=== PATIENT | female | born 2000 | race Caucasian/White ===

== ENCOUNTER 2020-09-21 20:20 | Observation (INO) | payer OTHER ==
[~2020-09-21] VITALS: Ht 167.6 cm; Wt 99.8 kg
[2020-09-21 21:20] VITALS: BP 116/59
[2020-09-21] MEDS ORDERED: TERBUTALINE 1 MG/ML VIAL SUBQ SCH (21:40)
[2020-09-21] MEDS ORDERED: TERBUTALINE 1 MG/ML VIAL SUBQ ONE (21:54)
[2020-09-22] MEDS: TERBUTALINE 2.5 MG TAB PO SCH ×2 (00:04→05:54)
--- NOTE | 2020-09-22 06:57 | NUR ---
PATIENT HAS BEEN SCREENED AND CATEGORIZED LOW NUTRITION RISK. PATIENT WILL BE SEEN WITHIN 7 DAYS OF ADMISSION. 09/28/20 TAE MCNULTY MS, RDN
[2020-09-22] MEDS ORDERED: CAMERA MC ONE (07:09)
== END 2020-09-22 13:10 | disposition home or self-care (01) ==
LOC: MLD 20:20 → MFCC 22:39
PROVIDERS: ADMIT Obstetrics & Gynecology; ATTEND Obstetrics & Gynecology
DX: O42.913 Preterm premature rupture of membranes, unspecified as to length of time between rupture and onset of labor, third trimester (principal); O62.9 Abnormality of forces of labor, unspecified; Z3A.35 35 weeks gestation of pregnancy
CPT/HCPCS: 76805; 96372; G0378; J3105; 59025

== ENCOUNTER 2020-10-23 10:10 | Observation (INO) | payer OTHER, SELFPAY ==
[~2020-10-23] VITALS: Ht 165.1 cm; Wt 105.2 kg
[2020-10-23] MEDS ORDERED: PNV91TAB10 PO (13:03)
== END 2020-10-23 13:50 | disposition home or self-care (01) ==
LOC: MLD 10:10
PROVIDERS: ADMIT Obstetrics & Gynecology; ATTEND Obstetrics & Gynecology
DX: O62.9 Abnormality of forces of labor, unspecified (principal); Z20.822 Contact with and (suspected) exposure to COVID-19; Z3A.39 39 weeks gestation of pregnancy
CPT/HCPCS: 59025; 76805; 81000; 87426; G0378

== ENCOUNTER 2020-10-26 15:16 | Inpatient (IN) | payer OTHER ==
[~2020-10-26] VITALS: Ht 165.1 cm; Wt 104.3 kg
[~2020-10-26 15:16] MED LIST: PNV91TAB10 PO
[2020-10-26] MEDS ORDERED: PROMETHAZINE 25 MG/ML VIAL IVP PRN (16:50)
[2020-10-26] MEDS ORDERED: CARBOPROST 250 MCG/ML AMP IM PRN (16:50)
[2020-10-26] MEDS ORDERED: LACTATED RINGERS 500 ML IV SCH (16:50)
[2020-10-26] MEDS ORDERED: NALBUPHINE 10 MG/ML AMP IVP PRN (16:50)
[2020-10-26] MEDS ORDERED: METHYLERGONOVINE 0.2 MG/ML AMP IM PRN (16:50)
[2020-10-26] MEDS ORDERED: OXYTOCIN 10 UNITS/ML VIAL IM SCH (16:50)
[2020-10-26] MEDS ORDERED: OXYTOCIN 20 UNITS in LACTATED RINGERS 1,000 ML IV SCH (17:10)
[2020-10-26 17:26] LABS: BASOPHILS % (AUTO) 0.3 % (0.0-2.0); EOSINOPHILS # (AUTO) 0.1 K/uL (0-0.4); EOSINOPHILS % (AUTO) 0.8 % (0.0-4.0); HEMATOCRIT 35.3 % (36-48); HEMOGLOBIN 11.8 g/dL (12.0-16.0); LYMPHOCYTES # (AUTO) 1.7 K/uL (2.5-16.5); LYMPHOCYTES % (AUTO) 17.7 % (20.5-51.1); MEAN CORPUSCULAR HEMOGLOBIN 29 pg (27-31); MEAN CORPUSCULAR HGB CONC 33 g/dL (33-37); MEAN CORPUSCULAR VOLUME 86.2 fL (80-94); MONOCYTES # (AUTO) 0.4 K/uL (0.8-1.0); MONOCYTES % (AUTO) 4.5 % (1.7-9.3); NEUTROPHILS # (AUTO) 7.4 K/uL (1.8-7.7); NEUTROPHILS % (AUTO) 76.7 % (42.2-75.2); PLATELET COUNT (AUTO) 222 K/uL (140-450); RED CELL DISTRIBUTION WIDTH 14.6 % (11.6-13.7); WHITE BLOOD COUNT (AUTO) 9.6 K/uL (4.8-10.8)
[2020-10-26 17:27] LABS: APPEARANCE,URINE HAZY (CLEAR); BILIRUBIN,URINE NEGATIVE (NEGATIVE); BLOOD, URINE NEGATIVE (NEGATIVE); COLOR,URINE YELLOW (YELLOW); LEUKOCYTE ESTERASE ,URINE TRACE (NEGATIVE); NITRITE, URINE NEGATIVE (NEGATIVE); PH,URINE 6.5 (5.0-9.0); UGLUCOSE NEGATIVE (NEGATIVE)
[2020-10-26] MEDS ORDERED: MISOPROSTOL 25 MCG TAB VG SCH (17:30)
[2020-10-26 17:35] LABS: RBC,URINE 0-5 /HPF (0-5)
[2020-10-26 17:40] LABS: ALBUMIN 2.7 g/dL (3.4-5.0); ANION GAP 12.9 (8-16); CARBON DIOXIDE 21.5 mmol/L (21-32); CREATININE 0.5 mg/dL (0.6-1.3); POTASSIUM 3.4 mmol/L (3.5-5.1); TOTAL BILIRUBIN 0.4 mg/dL (0.0-1.0)
[2020-10-26 17:43] VITALS: BP 101/49
[2020-10-26 19:44] VITALS: BP 105/52
[2020-10-27] MEDS ORDERED: OXYTOCIN 20 UNITS/LR PREMIX 1,000 ML IV ONE (03:34)
--- NOTE | 2020-10-27 07:43 | NUR ---
PATIENT HAS BEEN SCREENED AND CATEGORIZED LOW NUTRITION RISK. PATIENT WILL BE SEEN WITHIN 7 DAYS OF ADMISSION. 11/01/[address]
[2020-10-27] MEDS: LACTATED RINGERS 1,000 ML IV SCH ×2 (10:50→15:52)
[2020-10-27] MEDS ORDERED: ROPIVACAINE 0.2%/NS PREMIX 200 ML EPI ONE (15:53)
[2020-10-27] MEDS ORDERED: AMPICILLIN 2,000 MG in NACL 0.9% 100 ML IV SCH (15:55)
[2020-10-27] MEDS ORDERED: AMPICILLIN 2,000 MG VIAL ONE (16:32)
[2020-10-27] MEDS ORDERED: AMPICILLIN 1,000 MG VIAL ONE (20:16)
[2020-10-28] MEDS ORDERED: AMPICILLIN 1,000 MG VIAL ONE ×4 (00:13→13:29)
[2020-10-28] MEDS ORDERED: OXYTOCIN 20 UNITS/LR PREMIX 1,000 ML IV ONE (06:36)
[2020-10-28] MEDS ORDERED: ROPIVACAINE 0.2%/NS PREMIX 200 ML EPI ONE (06:55)
[2020-10-28] MEDS ORDERED: LIDOCAINE 1% 500 MG/50 ML VIAL ONE (07:22)
[2020-10-28] MEDS: LACTATED RINGERS 1,000 ML IV SCH (10:45)
[2020-10-28] MEDS ORDERED: ACETAMINOPHEN 325 MG TAB ONE (10:51)
[2020-10-28] MEDS ORDERED: ACETAMINOPHEN 325 MG TAB PO PRN ×2 (10:55→17:30)
[2020-10-28] MEDS ORDERED: ACETAMINOPHEN 650 MG SUPP RC SCH (11:00)
[2020-10-28] MEDS ORDERED: AMPICILLIN 1,000 MG in NACL 0.9% 50 ML IV SCH (13:30)
[2020-10-28] MEDS ORDERED: MEASLES, MUMPS, AND RUBELLA 1 VIAL SQVAC ONE (17:30)
[2020-10-28] MEDS ORDERED: OXYTOCIN 20 UNITS in LACTATED RINGERS 1,000 ML IV SCH (17:30)
[2020-10-28] MEDS ORDERED: DOCUSATE SODIUM 100 MG GELCAP PO PRN (17:30)
[2020-10-28] MEDS ORDERED: BENZOCAINE/MENTHOL 20%-0.5% 60 GM CAN TP PRN (17:30)
[2020-10-28] MEDS ORDERED: bisacodyL 5 MG TABEC PO PRN (17:30)
[2020-10-29] MEDS: IBUPROFEN 600 MG TAB PO PRN ×2 (00:14→16:00)
[2020-10-29 08:19] LABS: BASOPHILS % (AUTO) 0.2 % (0.0-2.0); EOSINOPHILS # (AUTO) 0.2 K/uL (0-0.4); EOSINOPHILS % (AUTO) 1.6 % (0.0-4.0); HEMATOCRIT 30.3 % (36-48); HEMOGLOBIN 9.9 g/dL (12.0-16.0); LYMPHOCYTES # (AUTO) 2.1 K/uL (2.5-16.5); LYMPHOCYTES % (AUTO) 14.7 % (20.5-51.1); MEAN CORPUSCULAR HEMOGLOBIN 28 pg (27-31); MEAN CORPUSCULAR HGB CONC 33 g/dL (33-37); MEAN CORPUSCULAR VOLUME 86.6 fL (80-94); MONOCYTES # (AUTO) 1.1 K/uL (0.8-1.0); MONOCYTES % (AUTO) 7.6 % (1.7-9.3); NEUTROPHILS # (AUTO) 10.9 K/uL (1.8-7.7); NEUTROPHILS % (AUTO) 75.9 % (42.2-75.2); PLATELET COUNT (AUTO) 172 K/uL (140-450); WHITE BLOOD COUNT (AUTO) 14.4 K/uL (4.8-10.8)
[2020-10-30] MEDS: IBUPROFEN 600 MG TAB PO PRN (02:55)
[2020-10-30] MEDS ORDERED: MEASLES, MUMPS, AND RUBELLA 1 VIAL SQVAC ONE (04:00)
== END 2020-10-30 16:10 | disposition home or self-care (01) | DRG 560 ==
LOC: OBSVTOIN 15:16 → MLD 15:16 → MFCC 10-28 19:40
PROVIDERS: ADMIT Obstetrics & Gynecology; ATTEND Obstetrics & Gynecology
PROC: 10E0XZZ Delivery of Products of Conception, External Approach (ICD-10-PCS; principal; 2020-10-28)
PROC: 0KQM0ZZ Repair Perineum Muscle, Open Approach (ICD-10-PCS; 2020-10-28)
PROC: 3E0R3BZ Introduction of Anesthetic Agent into Spinal Canal, Percutaneous Approach (ICD-10-PCS; 2020-10-28)
PROC: 00HU33Z Insertion of Infusion Device into Spinal Canal, Percutaneous Approach (ICD-10-PCS; 2020-10-28)
PROC: 3E0234Z Introduction of Serum, Toxoid and Vaccine into Muscle, Percutaneous Approach (ICD-10-PCS; 2020-10-28)
PROC: 3E0134Z Introduction of Serum, Toxoid and Vaccine into Subcutaneous Tissue, Percutaneous Approach (ICD-10-PCS; 2020-10-30)
DX: O36.63X0 Maternal care for excessive fetal growth, third trimester, not applicable or unspecified (principal); O70.1 Second degree perineal laceration during delivery; Z23 Encounter for immunization; Z37.0 Single live birth; Z3A.39 39 weeks gestation of pregnancy
CPT/HCPCS: 36415; 51702; 59200; 59409; 80053; 81001; 85025; 86592; 86886; 86900; 86901; 87086; 90707; J0290; J2001; J2300; J2550; J2590; J2795; J7120

== ENCOUNTER 2023-01-15 22:24 | Emergency (ER) | payer OTHER ==
[~2023-01-15] VITALS: Ht 165.1 cm; Wt 95.7 kg
[2023-01-15 22:35] VITALS: BP 113/56; PULSE 80; RESP 17; TEMP 97.9; O2SAT 98
--- NOTE | 2023-01-15 22:38 | NUR ---
TO LOBBY A/W BED AMBULATORY
[2023-01-15 23:07] LABS: BASOPHILS # (AUTO) 0.1 K/uL (0.00-0.22); BASOPHILS % (AUTO) 0.5 % (0.0-2.0); EOSINOPHILS # (AUTO) 0.2 K/uL (0-0.4); EOSINOPHILS % (AUTO) 1.6 % (0.0-4.0); LYMPHOCYTES # (AUTO) 3.4 K/uL (2.5-16.5); LYMPHOCYTES % (AUTO) 31.3 % (20.5-51.1); MEAN CORPUSCULAR HEMOGLOBIN 30 pg (27-31); MEAN CORPUSCULAR HGB CONC 34 g/dL (33-37); MEAN CORPUSCULAR VOLUME 86.6 fL (80-94); MONOCYTES # (AUTO) 0.7 K/uL (0.8-1.0); MONOCYTES % (AUTO) 6.3 % (1.7-9.3); NEUTROPHILS # (AUTO) 6.6 K/uL (1.8-7.7); NEUTROPHILS % (AUTO) 60.3 % (42.2-75.2); PLATELET COUNT (AUTO) 263 K/uL (140-450); RED BLOOD CELL COUNT(AUTO) 4.38 MIL/uL (4.20-5.40); RED CELL DISTRIBUTION WIDTH 13.2 % (11.6-13.7)
[2023-01-15 23:07] LABS: APPEARANCE,URINE CLEAR (CLEAR); BILIRUBIN,URINE NEGATIVE (NEGATIVE); BLOOD, URINE 2+ (NEGATIVE); COLOR,URINE YELLOW (YELLOW); LEUKOCYTE ESTERASE ,URINE NEGATIVE (NEGATIVE); NITRITE, URINE NEGATIVE (NEGATIVE); UGLUCOSE NEGATIVE (NEGATIVE)
[2023-01-15 23:13] LABS: RBC,URINE 0-5 /HPF (0-5)
[2023-01-16] MEDS ORDERED: ACET-2619 PO (02:07)
[2023-01-16] MEDS ORDERED: CEPH-588 PO (02:07)
[2023-01-16 02:12] VITALS: BP 113/56; PULSE 80; RESP 17; TEMP 97.9; O2SAT 98
--- NOTE | 2023-01-16 02:12 | NUR ---
Patient discharged with v/s stable. Written and verbal after care instructions given and explained. Patient alert, oriented and verbalized understanding of instructions. Ambulatory with steady gait. All questions addressed prior to discharge. ID band removed. Patient advised to follow up with PMD. Rx of KEFLEX AND TYLENOL given. Patient educated on indication of medication including possible reaction and side effects. Opportunity to ask questions provided and answered.
[2023-01-17] MEDS ORDERED: [UNRECOGNIZED DRUG - CODE] PO (01:06)
== END 2023-01-16 02:12 | disposition home or self-care (01) ==
LOC: MED 22:24
DX: O02.1 Missed abortion (principal); Z3A.01 Less than 8 weeks gestation of pregnancy; Z79.899 Other long term (current) drug therapy
CPT/HCPCS: 36415; 76815; 81001; 84702; 85025; 86886; 86900; 86901; 87086; 99284; Q0092

== ENCOUNTER 2023-01-16 21:04 | Emergency (ER) | payer OTHER ==
[~2023-01-16] VITALS: Ht 162.6 cm; Wt 95.3 kg
[~2023-01-16 21:04] MED LIST changes: +ACET-2619 PO; +CEPH-588 PO
[2023-01-16 21:40] VITALS: BP 97/43; PULSE 89; RESP 20; TEMP 97.4; O2SAT 97
--- NOTE | 2023-01-16 22:07 | NUR ---
PT PUT IN BED 8
--- NOTE | 2023-01-16 22:12 | NUR ---
Patient being evaluated by physician at bedside.
[2023-01-16] MEDS ORDERED: MISOPROSTOL 200 MCG TAB PO ONE (22:15)
[2023-01-16] MEDS ORDERED: MISOPROSTOL 100 MCG TAB ONE (22:19)
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
[2023-01-16 22:53] LABS: BASOPHILS % (AUTO) 0.3 % (0.0-2.0); EOSINOPHILS # (AUTO) 0.2 K/uL (0-0.4); HEMATOCRIT 38.3 % (36-48); HEMOGLOBIN 13.2 g/dL (12.0-16.0); LYMPHOCYTES % (AUTO) 29.3 % (20.5-51.1); MEAN CORPUSCULAR HEMOGLOBIN 30 pg (27-31); MEAN CORPUSCULAR HGB CONC 35 g/dL (33-37); MEAN CORPUSCULAR VOLUME 86.5 fL (80-94); MONOCYTES # (AUTO) 0.5 K/uL (0.8-1.0); MONOCYTES % (AUTO) 5.4 % (1.7-9.3); NEUTROPHILS # (AUTO) 6.4 K/uL (1.8-7.7); PLATELET COUNT (AUTO) 263 K/uL (140-450); RED BLOOD CELL COUNT(AUTO) 4.43 MIL/uL (4.20-5.40); WHITE BLOOD COUNT (AUTO) 10.1 K/uL (4.8-10.8)
[2023-01-16 23:10] VITALS: BP 100/32; PULSE 93; RESP 27
--- NOTE | 2023-01-16 23:15 | NUR ---
ULTRASOUND AT BEDSIDE
[2023-01-17 00:31] VITALS: O2SAT 100
[2023-01-17] MEDS ORDERED: [UNRECOGNIZED DRUG - CODE] PO (01:06)
--- NOTE | 2023-01-17 01:10 | NUR ---
Patient discharged with v/s stable. Written and verbal after care instructions given and explained. Patient verbalized understanding. Ambulatory with steady gait. All questions addressed prior to discharge. Advised to follow up with PMD.
== END 2023-01-17 01:10 | disposition home or self-care (01) ==
LOC: MED 21:04
DX: O03.9 Complete or unspecified spontaneous abortion without complication (principal); Z79.899 Other long term (current) drug therapy
CPT/HCPCS: 36415; 76801; 85025; 99284; Q0092